=== PATIENT | female | born 1960 | race Caucasian/White ===

== ENCOUNTER 2023-01-04 14:06 | Outpatient (CLI) | payer MEDICARE, OTHER | END 2023-01-04 14:07 | disposition home or self-care (01) | LOC: CSHRAD 14:06 | PROVIDERS: ATTEND Neurological Surgery | DX: S12.9XXD Fracture of neck, unspecified, subsequent encounter (principal) | CPT/HCPCS: 72040 ==

== ENCOUNTER 2023-01-21 14:51 | Outpatient (CLI) | payer MEDICARE, OTHER | END 2023-01-21 14:52 | disposition home or self-care (01) | LOC: CSHRAD 14:51 | PROVIDERS: ATTEND Neurological Surgery | DX: S12.9XXD Fracture of neck, unspecified, subsequent encounter (principal) | CPT/HCPCS: 72040 ==

== ENCOUNTER 2023-01-26 12:09 | Outpatient (CLI) | payer MEDICARE, OTHER | END 2023-01-26 12:10 | disposition home or self-care (01) | LOC: CSHRAD 12:09 | PROVIDERS: ATTEND Neurological Surgery | DX: S12.9XXD Fracture of neck, unspecified, subsequent encounter (principal) | CPT/HCPCS: 72050 ==